=== PATIENT | female | born 1945 | race African-American/Black ===

== ENCOUNTER 2023-06-04 13:11 | Outpatient (OUT) | payer OTHER, MEDICAID, SELFPAY ==
--- NOTE | 2023-06-04 13:13 | US_ITS ---
The [address] [address] Patient Name: ANGELICA VILLEGAS MRN: [id number] date: 1945 Sex: F Assigned Patient Location: [facility] Current Patient Location: [facility] Accession/Order Number: [id number] Exam Date: 06/04/2023 13:13 Report Date: 06/04/2023 14:28 At the request of: JAIMEE DONIS Procedure: US pelvis EXAMINATION: US pelvis HISTORY: POST MENOPAUSLA BLEEDING COMPARISON: No relevant comparison available. FINDINGS: Uterus is enlarged in size lobular in contour with multiple myometrial masses. The uterus measures 8.4 x 5.2 x 6.5 cm. The 2 largest masses measure 4.9 and 4.1 cm in size. The endometrium is thickened and hyperechogenic measuring 7 mm. The ovaries are not visualized. Identified in the left pelvis is a cystic lesion measuring 6.5 x 7.8 x 8.4 cm, the origin cannot be determined this could be arising from the left kidney. No free fluid US/US pelvis IMPRESSION: Enlarged nodular uterus with multiple masses, fibroids are statistically favored Thickened endometrium measuring 7 mm, tissue sampling is recommended in light of the patient's postmenopausal bleeding 8.4 cm left pelvic cyst, the origin cannot be determined from ultrasound Electronically authenticated by: MARIYA PICKETT Date: 06/04/2023 14:28
== END 2023-06-04 13:12 | disposition home or self-care (01) ==
LOC: NOMS 13:11
PROVIDERS: Visit Provider Obstetrics & Gynecology
DX: N95.0 Postmenopausal bleeding (principal); N94.89 Other specified conditions associated with female genital organs and menstrual cycle
CPT/HCPCS: 76856

== ENCOUNTER 2023-07-02 11:05 | Outpatient (OUT) | payer MEDICARE, MEDICAID, SELFPAY ==
[2023-07-02 11:24] LABS: Estimated GFR (African America 45 (>=60); Estimated GFR (Non-African Ame 37 (>=60)
--- NOTE | 2023-07-02 13:44 | CT_ITS ---
[address] [address] Patient Name: ANGELICA VILLEGAS MRN: [id number] date: 1945 Sex: F Assigned Patient Location: LAB Current Patient Location: Accession/Order Number: [id number] Exam Date: 07/02/2023 13:12 Report Date: 07/03/2023 06:22 At the request of: JAIMEE DONIS Procedure: CT abdomen pelvis wo/w con EXAMINATION: CT abdomen pelvis wo/w con HISTORY: Post Menopausal Bleeding N95.0 COMPARISON: Ultrasound pelvis 06/04/2023, CT abdomen pelvis 11/30/2015 TECHNIQUE: Axial, Coronal, and Sagittal images were obtained without and/or with IV contrast as indicated by examination type. Dose reduction techniques were achieved by using automated exposure control and/or adjustment of mA and/or kV according to patient size and/or use of iterative reconstruction technique. FINDINGS: LUNG BASES: No visible pulmonary or pleural disease. LIVER: No enlargement, atrophy, suspicious density, or significant focal lesion. BILIARY: Cholecystectomy. PANCREAS: No lesion, fluid collection, or abnormal duct dilatation. SPLEEN: No enlargement or focal lesion. ADRENALS: No mass or enlargement. KIDNEYS: Numerous fluid density and hyperdense lesions bilaterally; largest simple cyst is on the left, 7.7 cm. No appreciable enhancing lesion. No hydronephrosis or stones. BOWEL/MESENTERY: No visible mass, obstruction, or bowel wall thickening. AORTA/VASCULAR: Marked atherosclerotic disease. No aneurysm. RETROPERITONEUM: No mass or adenopathy. LYMPH NODES: No adenopathy. URINARY BLADDER: Only partially included; no appreciable wall thickening or stones. PELVIC ORGANS: Significant vaginal prolapse with urinary bladder and adjacent fat extending well below the pubic symphysis and below level of imaging. Heterogeneous nodular uterus; likely multiple leiomyomas. Unremarkable ovaries. ABDOMINAL WALL: No mass or hernia. BONES: No bony lesion or fracture. 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 OTHER: Negative. CT/CT abdomen pelvis wo/w con IMPRESSION: 1. Heterogeneous nodular uterus likely representing leiomyomas. 2. Unremarkable ovaries. No appreciable large cysts. 3. Significant vaginal prolapse containing the urinary bladder. 4. Bilateral polycystic kidney disease. 5. Marked atherosclerotic disease of aorta. Electronically authenticated by: MARTIN HARRELL Date: 07/03/2023 06:22
== END 2023-07-02 11:06 | disposition home or self-care (01) ==
PROVIDERS: Visit Provider Obstetrics & Gynecology
DX: N95.0 Postmenopausal bleeding (principal); Q61.3 Polycystic kidney, unspecified
CPT/HCPCS: 36415; 74178; 82565; 84520; Q9967

== ENCOUNTER 2023-07-09 10:54 | Outpatient (OUT) | payer MEDICARE, MEDICAID, SELFPAY ==
--- OUTSIDE RECORDS SUMMARY | 2023-07-09 11:01 | XMS_ITS | CCD ---
Author Name Unknown Address [id number] [place] [address] Organization [facility] Care Team Providers Care Imagery Intelligence Name Role Phone DR NOEMY WSET Attending Unavailable JULIO CESAR, DR MARTIN Yanez Consulting Unavailable [facility], DR GARCIA Primary Care Unavailable BRETT, DR SALGUERO Admitting Unavailable BRETT, DR SALGUERO Consulting Unavailable Yoselin Quijano PA-C Primary Care Provider YOSELIN QUIJANO Referring Unavailable YOSELIN QUIJANO Primary Care Unavailable VINAYAK GRANT Attending Unavailable JAIMEE SHAY Attending Unavailable JAIMEE SHAY Attending Unavailable INDY ARROYO Attending Unavailable YOSELIN QUIJANO Referring Unavailable YOSELIN QUIJANO Primary Care Unavailable MAVIS KENNY Attending Unavailable YOSELIN QUIJANO Referring Unavailable YOSELIN QUIJANO Primary Care Unavailable Allergies Allergy Classification Reported Allergen(s) Allergy Type Date of Onset Reaction(s) Facility (1 source) clopidogrel Drug Allergy 01-24-2013 [facility] (1 source) liothyronine Drug Allergy 01-24-2013 [facility] (6 sources) clopidogrel; Translations: [CLOPIDOGREL] Drug Allergy 08-26-2014 [facility] (6 sources) Ticlopidine; Translations: [TICLOPIDINE] Drug Allergy 08-26-2014 [facility] Medications Current Medications Medication Drug Class(es) Dates Sig (Normalized) Sig (Original) 8 hr acetaminophen 650 mg extended release oral tablet (4 sources) take 1 tablet by mouth every eight hours as needed for pain acetaminophen (TYLENOL ARTHRITIS) 650 mg 8 hr tablet Take 1 tablet (650 mg total) by mouth every 8 (eight) hours as needed for pain. 0 Active allopurinol 100 mg oral tablet (4 sources) Xanthine Oxidase Inhibitor take 1 tablet by mouth in the morning allopurinoL (ZYLOPRIM) 100 mg tablet Take 1 tablet (100 mg total) by mouth in the morning. 0 Active apixaban 2.5 mg oral tablet (5 sources) Factor Xa Inhibitor Start: 05-23-2023 take 1 tablet by mouth in the morning, then take 1 tablet by mouth at bedtime apixaban (ELIQUIS) 2.5 mg tablet Take 1 tablet (2.5 mg total) by mouth in the morning and 1 tablet (2.5 mg total) before bedtime. 90 tablet 3 05/23/2023 Active Start: 10-12-2022 End: 05-23-2023 take 1 tablet by mouth in the morning, then take 1 tablet by mouth at bedtime apixaban (ELIQUIS) 5 mg tablet Take 1 tablet (5 mg total) by mouth in the morning and 1 tablet (5 mg total) before bedtime. 180 tablet 3 10/12/2022 05/23/2023 Discontinued (Reorder) atorvastatin 40 mg oral tablet (2 sources) HMG-CoA Reductase Inhibitor Start: 04-06-2023 take 1 tablet by mouth in the morning atorvastatin (LIPITOR) 40 mg tablet Take 1 tablet (40 mg total) by mouth in the morning. 0 04/06/2023 Active baclofen 10 mg oral tablet (4 sources) gamma-Aminobutyric Acid-ergic Agonist take 1 tablet by mouth three times daily as needed for muscle spasms baclofen (LIORESAL) 10 mg tablet Take 1 tablet (10 mg total) by mouth 3 (three) times a day as needed for muscle spasms. 0 Active bisoprolol fumarate 10 mg oral tablet (4 sources) beta-Adrenergic Liam Start: 10-13-2022 take 1 tablet by mouth in the morning bisoprolol (ZEBETA) 10 mg tablet Take 1 tablet (10 mg total) by mouth in the morning. 90 tablet 3 10/13/2022 Active docusate sodium 100 mg oral tablet (4 sources) take 1 capsule by mouth once daily docusate sodium 100 mg capsule Take 100 mg by mouth daily. 0 Active 24 hr isosorbide mononitrate 30 mg extended release oral tablet (5 sources) Nitrate Vasodilator Start: 05-23-2023 take 1 tablet by mouth once daily isosorbide mononitrate (IMDUR) 30 mg 24 hr tablet Take 1 tablet (30 mg total) by mouth daily. 90 tablet 3 05/23/2023 Active End: 05-23-2023 take 1 tablet by mouth once daily isosorbide mononitrate (IMDUR) 60 mg 24 hr tablet Take 1 tablet (60 mg total) by mouth daily. 0 05/23/2023 Discontinued (Reorder) montelukast 5 mg chewable tablet (4 sources) Leukotriene Receptor Antagonist montelukast (SINGULAIR) 5 mg chewable tablet Chew 1 tablet (5 mg total) and swallow nightly. 0 Active nitroglycerin 0.4 mg sublingual tablet (4 sources) Nitrate Vasodilator Start: 07-12-19 21 nitroglycerin (NITROSTAT) 0.4 MG SL tablet 1 under the tongue as needed for angina, may repeat q5mins for up three doses 25 tablet 6 07/11/2020 Active omeprazole 20 mg delayed release oral capsule (4 sources) Proton Pump Inhibitor take 1 capsule by mouth in the morning omeprazole (PriLOSEC) 20 mg capsule Take 1 capsule (20 mg total) by mouth in the morning. 0 Active sodium bicarbonate 325 mg oral tablet (4 sources) take 1 tablet by mouth in the morning, then take 1 tablet by mouth at bedtime sodium bicarbonate 325 mg tablet Take 1 tablet (325 mg total) by mouth in the morning and 1 tablet (325 mg total) before bedtime. 0 Active Completed/Discontinued Medications Medication Drug Class(es) Dates Sig (Normalized) Sig (Original) MULTIVIT WITH CALCIUM,IRON,MIN (WOMEN'S DAILY MULTIVITAMIN ORAL) (3 sources) End: 05-23-2023 take 1 tablet by mouth once daily MULTIVIT WITH CALCIUM,IRON,MIN (WOMEN'S DAILY MULTIVITAMIN ORAL) Take 1 tablet by mouth once daily. 0 05/23/2023 Discontinued (Therapy completed) take 1 tablet by mouth once belle y MULTIVIT WITH CALCIUM,IRON,MIN (WOMEN'S DAILY MULTIVITAMIN ORAL) Take 1 tablet by mouth once daily. 0 Active Problems Active Problems Problem Classification Problem Date Documented Da te Episodic/Chronic Cardiac dysrhythmias (10 sources) Paroxysmal atrial fibrillation; Translations: [Paroxysmal atrial fibrillation] Onset: 03-23-2016 03-28-2017 Chronic Conduction disorders (7 sources) Automatic implantable cardiac defibrillator in situ; Translations: [Presence of automatic (implantable) cardiac defibrillator] Onset: 01-02-2017 04-23-2017 Chronic Congestive heart failure; nonhypertensive (6 sources) Chronic systolic heart failure; Translations: [Chronic systolic (congestive) heart failure] Onset: 01-24-2016 03-28-2017 Chronic Coronary atherosclerosis and other heart disease (19 sources) Old myocardial infarction; Translations: [Coronary arteriosclerosis] Onset: 11-10-2005 Resolved: 05-23-2023 03-28-2017 Chronic Diabetes mellitus without complication (4 sources) Type 2 diabetes mellitus; Translations: [Type 2 diabetes mellitus without complications] Onset: 11-10-2005 03-28-2017 Chronic Disorders of lipid metabolism (7 sources) Pure hypercholesterolemia , unspecified; Translations: [Hyperlipidemia] Onset: 11-10-2005 03-28-2017 Chronic Essential hypertension (7 sources) Essential (primary) hypertension; Translations: [Benign essential hypertension] Onset: 11-10-2005 03-28-2017 Chronic Gastrointestinal hemorrhage (1 source) Rectal hemorrhage Onset: 06-25-2023 Episodic Gout and other crystal arthropathies (1 source) Gout, unspecified; Translations: [GOUT UNSPECIFIED] Onset: 03-24-2021 Chronic Hypertension with complications and secondary hypertension (4 sources) Benign hypertensive heart disease without congestive heart failure; Translations: [Hypertensive heart disease without heart failure] Onset: 09-01-2009 03-28-2017 Chronic Menopausal disorders (2 sources) Postmenopausal bleeding; Translations: [Postmenopausal bleeding] Onset: 04-23-2023 Chronic Other aftercare (1 source) terminal make up operator (current) use of aspirin; Translations: [RESIDENTIAL CURRENT USE OF ASPIRIN] Onset: 03-24-2021 Episodic Other aftercare (1 source) Other terminal make up operator (current) drug therapy; Translations: [OTH RESIDENTIAL CURRENT DRUG THERAPY] Onset: 03-24-2021 Episodic Other connective tissue disease (4 sources) Pain in left foot; Translations: [PAIN IN LEFT FOOT] Onset: 03-18-2021 Episodic Other connective tissue disease (1 source) Pain in right foot; Translations: [PAIN IN RIGHT FOOT] Onset: 03-24-2021 Episodic Other skin disorders (1 source) Localized swelling, mass and lump, lower limb, bilateral; Translations: [LOC SWELL MASS LUMP LOW LIMB ASHUTOSH] Onset: 03-24-2021 Episodic Unclassified (1 source) Device Check Onset: 05-23-2023 Unclassified (1 source) Error Onset: 06-25-2023 Past or Other Problems Problem Classification Problem Date Documented Date Episodic/Chronic Acute myocardial infarction (4 sources) Acute non-ST segment elevation myocardial infarction; Translations: [Non-ST elevation (NSTEMI) myocardial infarction] Onset: 03-28-2017 Resolved: 05-23-2023 03-28-2017 Chronic Mood disorders (4 sources) Mood disorders Onset: 05-18-2020 05-18-2020 Nonspecific chest pain (4 sources) Chest pain; Translations: [Chest pain, unspecified] Onset: 05-18-2020 05-18-2020 Episodic Other circulatory disease (4 sources) Hypotensive episode; Translations: [Hypotension, unspecified] Onset: 03-28-2017 Resolved: 05-23-2023 03-28-2017 Episodic Other nutritional; endocrine; and metabolic disorders (4 sources) Body mass index 30+ - obesity; Translations: [Obesity, unspecified] Onset: 09-24-2020 Resolved: 05-23-2023 09-24-2020 Chronic Other screening for suspected conditions (not mental disorders or infectious disease) (4 sources) Abnormal results of cardiovascular function studies; Translations: [Abnormal result of cardiovascular function study, unspecified] Onset: 01-25-2011 Resolved: 05-23-2023 03-28-2017 Episodic Results Test Name Value Interpretation Reference Range Facility CBC AUTO DIFFon 03-18-2021 BASO # 0.0 103/ul Normal 0.0-0.1 [facility] Comment on above: Performed By: #### C BC #### [facility] [address] [place] [address] Dr. Amira Witt Basophils/100 WBC (Bld) 0.7 % Normal 0.2-2.0 [facility] Comment on above: Performed By: #### C BC #### [facility] [address] [place] [address] Dr. Amira Witt EO # 0.1 103/ul Normal 0.0-0.7 [facility] Comment on above: Performed By: #### C BC #### [facility] [address] [place] [address] Dr. Amira Witt Eosinophils/100 WBC (Bld) 1.0 % Normal 0.9-7.0 [facility] Comment on above: Performed By: #### C BC #### [facility] [address] [place] [address] Dr. Amira Witt Erythrocyte distribution width (RBC) [Ratio] 14.6 % Normal 11.0-15.0 [facility] Comment on above: Performed By: #### C BC #### [facility] [address] [place] [address] Dr. Amira Witt Hematocrit (Bld) [Volume fraction] 34.9 % Critically low 36.0-48.0 [facility] Comment on above: Performed By: #### C BC #### [facility] [address] [place] [address] Dr. Amira Witt Hemoglobin (Bld) [Mass/Vol] 11.3 g/dL Critically low 12.0-16.0 [facility] Comment on above: Performed By: #### C BC #### [facility] [address] [place] [address] Dr. Amira Witt IG # 0.04 10e3/ul Critically high 0.00-0.03 [facility] Comment on above: Performed By: #### C BC #### [facility] [address] [place] [address] Dr. Amira Witt IG % 0.7 % Critically high 0.0-0.5 [facility] Comment on above: Performed By: #### C BC #### [facility] [address] [place] [address] Dr. Amira Witt LYMPH # 1.5 103/ul Normal 1.2-3.8 [facility] Comment on above: Performed By: #### C BC #### [facility] [address] [place] [address] Dr. Amira Witt Lymphocytes/100 WBC (Bld) 24.3 % Normal 20.5-60.0 [facility] Comment on above: Performed By: #### C BC #### [facility] [address] [place] [address] Dr. Amira Witt MANUAL DIFF REQ NO Normal [facility] Comment on above: Performed By: #### C BC #### [facility] [address] [place] [address] Dr. Amira Witt MCH (RBC) [Entitic mass] 31.9 pg Normal 26.7-34.0 [facility] Comment on above: Performed By: #### C BC #### [facility] [address] [place] [address] Dr. Amira Witt MCHC (RBC) [Mass/Vol] 32.4 g/dL Normal 29.9-35.2 [facility] Comment on above: Performed By: #### C BC #### [facility] [address] [place] [address] Dr. Amira Witt MCV (RBC) [Entitic vol] 98.6 fL Normal 81.0-99.0 [facility] Comment on above: Performed By: #### C BC #### [facility] [address] [place] [address] Dr. Amira Witt MONO # 0.6 103/ul Normal 0.3-0.8 [facility] Comment on above: Performed By: #### C BC #### [facility] [address] [place] [address] Dr. Amira Witt Monocytes/100 WBC (Bld) 9.6 % Normal 1.7-12.0 [facility] Comment on above: Performed By: #### C BC #### [facility] [address] [place] [address] Dr. Amira Witt NEUT # 3.9 103/ul Normal 1.4-6.5 [facility] Comment on above: Performed By: #### C BC #### [facility] [address] [place] [address] Dr. Amira Witt Neutrophils/100 WBC (Bld) 63.7 % Normal 43.0-75.0 [facility] Comment on above: Performed By: #### C BC #### [facility] [address] [place] [address] Dr. Amira Witt Platelet mean volume (Bld) [Entitic vol] 9.6 fL Normal 9.5-13.5 [facility] Comment on above: Performed By: #### C BC #### [facility] [address] [place] [address] Dr. Amira Witt PLT 299 103/ul Normal 150-450 [facility] Comment on above: Performed By: #### C BC #### [facility] [address] [address] [address] Amira Witt RBC 3.54 106/ul Critically low 4.20-5.40 [facility] Comment on above: Performed By: #### C BC #### [facility] [address] [address] [address] Amira Witt WBC 6.1 103/ul Normal 4.0-11.0 [facility] Comment on above: Performed By: #### C BC #### [facility] [address] [place] [address] Dr. Amira Witt CRPon 03-18-2021 CRP 0.5 mg/dL Normal <=1.0 [facility] Comment on above: Performed By: #### B MP, URIC, CRP #### [facility] [address] [place] [address] Dr. Amira Witt PROF CHEM 8 (BAS METB)on Anion gap [Moles/Vol] 15.1 mmol/L Normal [facility] Comment on above: Performed By: #### B MP, URIC, CRP #### [facility] [address] [place] [address] Dr. Amira Witt Calcium [Mass/Vol] 9.6 mg/dL Normal 8.4-10.2 [facility] Comment on above: Performed By: #### B MP, URIC, CRP #### [facility] [address] [place] [address] Dr. Amira Witt Chloride [Moles/Vol] 100 mmol/L Normal 98-107 [facility] Comment on above: Performed By: #### B MP, URIC, CRP #### [facility] [address] [place] [address] Dr. Amira Witt CO2 [Moles/Vol] 27.7 mmol/L Normal 22.0-30.0 [facility] Comment on above: Performed By: #### B MP, URIC, CRP #### [facility] [address] [address] [address] Amira Witt Creatinine [Mass/Vol] 1.63 mg/dL Critically high 0.52-1.04 [facility] Comment on above: Performed By: #### B MP, URIC, CRP #### [facility] [address] [place] [address] Dr. Amira Witt EGFR-AF LAO 37 mL/min/1.73m2 Critically low >=60 [facility] Comment on above: Performed By: #### B MP, URIC, CRP #### [facility] [address] [place] [address] Dr. Amira Witt EGFR-NON AF LAO 31 mL/min/1.73m2 Critically low >=60 [facility] Comment on above: Performed By: #### B MP, URIC, CRP #### [facility] [address] [address] [address] Amira Witt Glucose [Mass/Vol] 149 mg/dL Critically high 74-106 [facility] Comment on above: Performed By: #### B MP, URIC, CRP #### [facility] [address] [place] [address] Dr. Amira Witt Potassium [Moles/Vol] 2.8 mmol/L Critically low 3.4-5.0 [facility] Comment on above: Performed By: #### B MP, URIC, CRP #### [facility] [address] [address] [address] Amira Witt Sodium [Moles/Vol] 140 mmol/L Normal 137-145 [facility] Comment on above: Performed By: #### B MP, URIC, CRP #### [facility] [address] [address] [address] Amira Witt Urea nitrogen [Mass/Vol] 23.0 mg/dL Critically high 7.0-17.0 [facility] Comment on above: Performed By: #### B MP, URIC, CRP #### [facility] [address] [place], [place] [address] Dr. Amira Witt Urea nitrogen/Creatinin e [Mass ratio] 14.1 mg/mg Normal [facility] Comment on above: Performed By: #### B MP, URIC, CRP #### [facility] [address] [address] [address] Amira Witt SED RATE WESTERGRENon 2020 SED RATE 72 mm/hr Critically high <=30 [facility] Comment on above: Performed By: #### S EDR #### [facility] [address] [address] [address] Amira Witt URIC ACID SERUMon 03-18-2021 Urate [Mass/Vol] mg/dL Critically high 2.5-6.2 [facility] Comment on above: Performed By: #### B MP, URIC, CRP #### [facility] [address] [address] [address] Amira Witt XR FOOT ASHUTOSH MIN 3 VIEWSon XR FOOT ASHUTOSH MIN 3 VIEWS EXAMINATION: XR FOOT ASHUTOSH MIN 3 VIEWS HISTORY: Pain in right foot ; bilateral foot pain for 7 months; unable to walk for one week COMPARISON: No relevant comparison available. FINDINGS: RIGHT FINDINGS: BONES: No significant arthropathy or acute abnormality. Tiny calcaneal plantar spur. SOFT TISSUES: No visible soft tissue swelling. OTHER: Negative. LEFT FINDINGS: BONES: Mild degenerative changes of the first metatarsophalangeal joint. Small calcaneal plantar spur. SOFT TISSUES: No visible soft tissue swelling. OTHER: Negative. IMPRESSION: RIGHT CONCLUSION: 1. No acute or suspicious findings to account for patient's symptoms. Very minimal degenerative changes. LEFT CONCLUSION: 1. No acute or suspicious findings to account for patient's symptoms. Mild degenerative changes. Electronically authenticated by: MARTIN HARRELL Date: 2021-03-18 15:17 Normal [facility] Vital Signs Date Time Vital Sign Value Performing Clinician Rahel whiting 05-23-2023 14:26-0500 Body height 170.2 cm Vinayak Grant MD Work Phone: [employer] 05-23-2023 14:26-0500 Body mass index (BMI) [Ratio] 28.51 kg/m2 Vinayak Grant MD Work Phone: [employer] 05-23-2023 14:26-0500 Body weight 82.56 kg Vinayak Grnat MD Work Phone: [employer] 05-23-2023 14:26-0500 Diastolic blood pressure 60 mm[Hg] Vinayak Grant MD Work Phone: [employer] 05-23-2023 14:26-0500 Heart rate 66 /min Vinayak Grant MD Work Phone: [employer] 05-23-2023 14:26-0500 SaO2% (BldA) [Mass fraction] 99 % Vinayak Grant MD Work Phone: [employer] 05-23-2023 14:26-0500 Systolic blood pressure 90 mm[Hg] Vinayak Grant [facility] Encounters Encounter Date Encounter Type Care Provider Facility Start: 06-25-2023 ambulatory [facility] Rex KENNY [facility] Start: 06-18-2023 End: 06-18-2023 ambulatory JAIMEE GAGANDEEP Not Available Start: 05-30-2023 Telephone encounter Mavis Kenny [employer] Work Phone: [facility] Start: 05-28-2023 End: 05-28-2023 ambulatory JAIMEE GAGANDEEP Not Available Start: 05-23-2023 End: 05-23-2023 ambulatory YOSELIN Goodman [facility] Start: 05-23-2023 End: 05-23-2023 Office outpatient visit 15 minutes Ben Zarate [employer] Work Phone: [facility] Comment on above: Presence of automati c implantable cardioverter-defibrillator (Primary Dx); Benign essential hypertension; Chronic coronary artery disease; Chronic systolic congestive heart failure (CMS-HCC); Paroxysmal atrial fibrillation (CMS-HCC); Mixed hyperlipidemia Start: 05-23-2023 End: 05-23-2023 Clinical Support [facility] Comment on above: Presence of automati c implantable cardioverter-defibrillator [employer] (Primary Dx) Start: 05-22-2023 Telephone encounter Celestina Steven [facility] Start: 04-23-2023 ambulatory INDY ARROYO [facility] Start: 03-18-2021 End: 03-18-[address] NOEMY WEST Facility: Start: 03-28-2017 Patient encounter status Celestina Mary Jo farris [facility] Start: 09-01-2016 End: 05-23-2023 Patient encounter status Vinayak Grant MD Work Phone: [facility] Procedures Date Procedure Procedure Detail Performing Clinician Start: 05-23-2023 Follow-up visit Follow-up VINAYAK GRANT Start: 05-23-2023 DEVICE INTERROGATION Vinayak Grant MD Work Phone: Start: 06-28-2020 History of placement of stent for coronary artery disease Status post primary angioplasty with coronary stent Celestina Steven [facility] Plan of Treatment Date Care Activity Detail Author Start: 05-23-2024 Adult BMI Screening Adult BMI Screen ing [facility] Start: 05-23-2024 Tobacco Screening Tobacco Screening [facility] Start: 04-23-2024 Adult BMI Screening Adult BMI Screen [facility] Start: 04-23-2024 Tobacco Screening Tobacco Screening [facility] Start: 06-25-2023 End: 06-25-2023 Patient encounter procedure 06/25/2023 2:30 PM EST Office Visit [facility] General [facility] [address] [place] [id number] Mavis Kenny, [employer] [address] [place] [address] [facility] General [facility] Start: 05-28-2023 End: 05-28-2023 Patient encounter procedure 05/28/2023 3:00 PM EST Office Visit [facility] Obstetrics/Gynecology [address] [place] [id number] Indy Arroyo MD [address] [place] [address] [facility] Obstetrics/Gynecolog y Start: 05-23-2023 End: 05-23-2023 Clinical Support [facility] Start: 01-05-2023 COVID-19 Vaccine ( season) COVID-19 Vaccine ( season) [facility] Start: 2008 Fall Risk Screening Fall Risk Screen ing [facility] Start: 1962 DTaP,Tdap and Td Vaccines (1 - Tdap) DTaP,Tdap and Td Vaccines ( - Tdap) [facility] Start: 1961 Adult BMI Follow Up Plan Adult BMI Follow Up Plan [facility] Start: 1955 Depression Screening Depression Scre ening [facility] Start: 1943 Medicare Annual Wellness Visit Medicare Annual Wellness Visit [facility] End: 05-23-2024 CBC panel - Blood by Automated count CBC Lab Routine Paroxysmal atrial fibrillation ([facility]) 1 Occurrences starting 05/23/2023 until 05/23/2024 [facility] Comment on above: 1 Occurrences starti ng 05/23/2023 until 05/23/2024 End: 05-23-2024 Comprehensive metabolic 2000 panel - Serum or Plasma CMP Lab Routine Paroxysmal atrial fibrillation ([facility]-HCC) 1 Occurrences starting 05/23/2023 until 05/23/2024 [facility] Comment on above: 1 Occurrences starti ng 05/23/2023 until 05/23/2024 Device Interrogation Device Inte rrogation Cardiac Services Routine Presence of automatic implantable cardioverter-defibrillat or 05/23/2023 [facility] sfilatino [facility] End: 05-23-2024 Lipid panel Lipid panel Lab Routine Mixed hyperlipidemia 1 Occurrences starting 05/23/2023 until 05/23/2024 [facility] Work Phone: Comment on above: 1 Occurrences starti ng 05/23/2023 until 05/23/2024 Immunizations Immunization Date Immunization Notes Care Provider Fa cility 08-06-2020 COVID-19, mRNA, LNP- S, PF, 100mcg/0.5mL Dose Celestina Steven [facility] 07-09-2020 COVID-19, mRNA, LNP- S, PF, 100mcg/0.5mL Dose Celestina Steven [facility] 01-14-2020 Influenza, High-dose , Quadrivalent Celestina Tenisha [facility] 01-11-2019 influenza, high dose seasonal, preservative-free Celestina Marilinjesus manuelera [facility] 01-11-2019 pneumococcal polysaccharide vaccine, 23 valent Celestina Marilinquintin [facility] 02-05-2018 influenza, injectabl e, quadrivalent, preservative free Celestina Steven [facility] 01-04-2018 influenza, high dose seasonal, preservative-free Celestina Tenisha [facility] 01-04-2018 zoster vaccine recombinant Celestinakristen Steven [facility] 10-29-2017 zoster vaccine recombinant Celestinakristen Steven [facility] 02-05-2017 pneumococcal conjuga te vaccine, 13 valent Celestina Marilinquintin [facility] 01-24-2017 influenza, injectabl e, quadrivalent, preservative free Celestina Steven [facility] 01-15-2017 influenza, high dose seasonal, preservative-free Celestina Tenisha [facility] 12-29-2014 influenza, high dose seasonal, preservative-free Celestina Marilinjesus manuelera [facility] 02-08-2010 influenza, seasonal, injectable Celestina Tamiera [facility] Payers Date Payer Category Payer Medicare AETNA MEDICARE A ETNA MEDICARE PLAN (HMO) [id number] 2022-Present [phone] [address] [place] [address] [id number] 2022 Medicare [id number] 2015 Medicaid [place]ICA[place] SIM[place] M EDICAID [id number] 2015-Present [phone] [address] [place] [address] [id number] 1959 Medicaid [id number] 1959 Medicare [id number] 1945 Unknown [id number] 1945 Unknown [id number] 1943 Unknown [id number] 1943 Unknown [id number] 1943 Unknown [id number] 1943 Unknown [id number] 1945 Unknown [id number] Social History Date Type Detail Facility Start: 10-12-2022 Tobacco smoking stat [facility] Never smoked tobacco [facility] Start: 10-12-2022 Tobacco use and exposure Smoke less tobacco non-user [facility] Start: 04-23-2023 End: 05-23-2023 Alcohol intake Current non-drinker of alcohol (finding) [facility] Start: 05-18-2020 End: 05-23-2023 History of Social function [facility] Start: 05-18-2020 End: 05-23-2023 Social connection and isolation panel [facility] Do you belong to any clubs or organizations such as mormon groups, unions, fraternal or athletic groups, or school groups? No [facility] Are you now , , , , never or living with a partner? [facility] Adolescent depressio n screening assessment [facility] Do you feel stress - tense, restless, nervous, or anxious, or unable to sleep at night because your mind is troubled all the time - these days [OSQ] Not at all [facility] Start: 1945 Sex Assigned At Not on file P [employer] Medical Equipment Procedure Code Equipment Code Equipment Original Text Equipment Identifier Dates Medtronic Icd [id number] Start: 01-14-2016 Comment on above: Description: Medtron ic dual chamber PM/Defibrillator. Call [phone] if assistance needed. [facility] office reports that patient is not pacemaker dependent, so a magnet can be used to suspend detection and setting will resume when removed. If pacemaker dependent then it will not pace with use of a magnet and cautery as it will detect the activity from cautery as cardiac function, so intermittent cautery is recommended. Cristobal Lopes a 3.25x18 Rx - [id number] Start: 05-19-2020 Goals Date Patient Goal Desired Activity /State Personal health goal Comment on above: Formatting of this n ote might be different from the original. Evaluation of progress towards goal: Patient plans to DC home with self care. Clinical Notes 05-22-2023 to 05-30-2023 Telephone Encounter - Darlyn Hughes - 05/30/2023 11:07 AM ESTTelephone Encounter - Darlyn Hughes - 05/30/2023 11:07 AM ESTTelephone Encounter - Darlyn Hughes - 05/30/2023 11:07 AM EST Note Date & Type Note Facility 05-30-2023 Miscellaneous Notes Formattin g of this note might be different from the original. Called Bettye regarding the possible rectal bleeding referral that our office received from Dr. Shay, she needs to check with her son as he is her ride, and will call us back later to schedule an appointment. Bettye and her grandson Kishan came into the office and we scheduled her an appointment on 06/25/2023. documented in this encounter [facility] sfilatino [facility] 05-30-2023 Telephone encount er Note Called Bettye regarding the possible rectal bleeding referral that our office received from Dr. Shay, she needs to check with her son as he is her ride, and will call us back later to schedule an appointment. [facility]-30[facility]2023 Telephone encount er Note Bettye and her grandson Kishan came into the office and we scheduled her an appointment on 06/25/2023. [facility] 05-23-2023 History of Presen t illness Narrative Bettye Wallace Date of visit: 05/23/2023 Date of : 1945 Age: 78 y.o. Patient Active Problem List Diagnosis Presence of automatic implantable cardioverter-defibrillator Medtronic Benign essential hypertension Benign hypertensive heart disease without congestive heart failure Chronic systolic congestive heart failure ([facility]) Chronic coronary artery disease Type 2 diabetes mellitus ([facility]) Hyperlipidemia Old myocardial infarction Paroxysmal atrial fibrillation ([facility]) Supraventricular tachycardia Chest pain Status post primary angioplasty with coronary stent Allergies Allergen Reactions Clopidogrel Rash Ticlopidine Rash Other reaction(s): Intolerance-unknown Current Outpatient Medications Medication Sig Dispense Refill acetaminophen (TYLENOL ARTHRITIS) 650 mg 8 hr tablet Take 1 tablet (650 mg total) by mouth every 8 (eight) hours as needed for pain. allopurinoL (ZYLOPRIM) 100 mg tablet Take 1 tablet (100 mg total) by mouth in the morning. atorvastatin (LIPITOR) 40 mg tablet Take 1 tablet (40 mg total) by mouth in the morning. baclofen (LIORESAL) 10 mg tablet Take 1 tablet (10 mg total) by mouth 3 (three) times a day as needed for muscle spasms. bisoprolol (ZEBETA) 10 mg tablet Take 1 tablet (10 mg total) by mouth in the morning. 90 tablet 3 docusate sodium 100 mg capsule Take 100 mg by mouth daily. montelukast (SINGULAIR) 5 mg chewable tablet Chew 1 tablet (5 mg total) and swallow nightly. nitroglycerin (NITROSTAT) 0.4 MG SL tablet 1 under the tongue as needed for angina, may repeat q5mins for up three doses 25 tablet 6 omeprazole (PriLOSEC) 20 mg capsule Take 1 capsule (20 mg total) by mouth in the morning. sodium bicarbonate 325 mg tablet Take 1 tablet (325 mg total) by mouth in the morning and 1 tablet (325 mg total) before bedtime. apixaban (ELIQUIS) 2.5 mg tablet Take 1 tablet (2.5 mg total) by mouth in the morning and 1 tablet (2.5 mg total) before bedtime. 90 tablet 3 isosorbide mononitrate (IMDUR) 30 mg 24 hr tablet Take 1 tablet (30 mg total) by mouth daily. 90 tablet 3 No current facility-administered medications for this visit. Chief Complaint Patient presents with Follow-up EST PT F/U 6 MS ICD CK ALSO SCHED W/ PT*COVID POS 03/26/2023* History of Present Illness I last saw this 78-year-old in 2008. She was last in the office 10/2022 ICD interrogated today. She denies chest pain or worsening shortness of breath In April she lost her good friend and her brother. This compounds the mourning of losing several of her children She has previously worked at a [employer] plant. She is unaccompanied today CV TESTING HISTORY: ECHO: No results found. STRESS: No results found. HOLTER: No results found. CARDIAC CATH: No results found. CAROTID: No results found. CXR: X-ray chest 1 view Result Date: 03/26/2023 Portable chest: HISTORY: Cough and syncope. Single view of the chest was obtained and compared to prior exam dated 05/25/2022. Cardiac and mediastinal contours are stable. No focal infiltrate or effusion. No pneumothorax is seen. Osseous structures appear intact. IMPRESSION: No acute findings. Finalized by Pankaj Green MD on 03/26/2023 6:06 PM Lipid Profile: Lab Results Component Value Date Cholesterol 194 05/10/2020 Cholesterol:HDL Ratio 4.5 05/10/2020 HDL Cholesterol 43 05/10/2020 Triglycerides 89 05/10/2020 LDL (calc) 133 (H) 05/10/2020 No data recorded No data recorded No data recorded Past Medical History: Diagnosis Date Abnormal result of cardiovascular function study Arthritis CHF (congestive heart failure) ([facility] Chronic kidney disease Coronary artery disease heart disease Diabetes mellitus type 2, controlled ([facility]) GERD (gastroesophageal reflux disease) Gout Hyperlipidemia Hypertension Myocardial infarction ([facility]) 01/2016 Old myocardial infarction PAF (paroxysmal atrial fibrillation) ([facility]) Presence of automatic (implantable) cardiac defibrillator SVT (supraventricular tachycardia) Visual impairment glasses Past Surgical History: Procedure Laterality Date BACK SURGERY Cardiac catheterization N/A 05/19/2020 Performed by Anup Cross MD at [facility] CARDIAC DEFIBRILLATOR PLACEMENT 01/13/2016 Medtronic CHOLECYSTECTOMY Coronary angiogram ONLY N/A 05/19/2020 Performed by Anup Cross MD at [facility] CORONARY STENT PLACEMENT x8 stents D&C FIRST TRIMESTER / TX INCOMPLETE / MISSED / SEPTIC / INDUCED GUM SURGERY INSERT / REPLACE / REMOVE PACEMAKER Percutaneous coronary intervention N/A 05/19/2020 Performed by Anup Cross MD at [facility] RELEASE TRIGGER FINGER Left 09/11/2016 Performed by Jaison Archer DO at [facility] SHOULDER ARTHROSCOPY W/ ROTATOR CUFF REPAIR Bilateral Stent drug-eluting left circumflex N/A 05/19/2020 Performed by Anup Cross MD at [facility] Stent drug-eluting ramus N/A 05/19/2020 Performed by Anup Cross MD at [facility] TUBAL LIGATION Family History Problem Relation Age of Onset Heart disease Mother 80 aneurysm Coronary artery disease Daughter Hypertension Daughter Diabetes type II Daughter Social History Socioeconomic History Marital status: Legally Spouse name: Not on file Number of children: Not on file Years of education: Not on file Highest education level: Not on file Occupational History Not on file Tobacco Use Smoking status: Never Smokeless tobacco: Never Vaping Use Vaping Use: Never used Substance and Sexual Activity Alcohol use: No Drug use: No Sexual activity: Not Currently Other Topics Concern Caffeine Use Yes Comment: diet pepsi Social History Narrative Not on file Social Determinants of Health Financial Resource Strain: Not on file Food Insecurity: No Food Insecurity (05/23/2023) Hunger Screening Food Insecurity - Worry: Never True Food Insecurity - Inability: Never True Transportation Needs: Not on file Physical Activity: Inactive (05/18/2020) Exercise Vital Sign Days of Exercise per Week: 0 days Minutes of Exercise per Session: 0 min Stress: No Stress Concern Present (05/18/2020) [place] [employer] - Occupational Stress Questionnaire Feeling of Stress : Not at all Social Connections: Socially Isolated (05/18/2020) Social Connection and Isolation Panel [NHANES] Frequency of Communication with Friends and Family: More than three times a week Frequency of Social Gatherings with Friends and Family: More than three times a week Attends Zoroastrianism Services: Never Active Member of Clubs or Organizations: No Attends Club or Organization Meetings: Never Marital Status: Interpersonal Safety: Not At Risk (05/18/2020) Humiliation, Afraid, Rape, and Kick questionnaire Fear of Current or Ex-Partner: No Emotionally Abused: No Physically Abused: No Sexually Abused: No Review of Systems Review of Systems Constitutional: Negative for chills, fever and malaise/fatigue. HENT: Positive for nosebleeds. Negative for hearing loss and hoarse voice. Eyes: Negative for blurred vision and double vision. Respiratory: Negative for cough, shortness of breath and wheezing. Skin: Negative for color change and rash. Musculoskeletal: Negative for back pain, joint swelling and muscle weakness. Gastrointestinal: Negative for change in bowel habit, constipation and diarrhea. Neurological: Positive for loss of balance. Negative for dizziness, headaches, light-headedness and numbness. Psychiatric/Behavioral: Positive for depression. The patient is nervous/anxious. Allergic/Immunologic: Negative for environmental allergies. CARDIOVASCULAR: Please review HPI. Physical Examination General appearance: Alert, oriented and cooperative. In no acute distress. Skin: Warm and dry to touch. Respiratory: Clear to auscultation bilaterally, no use of accessory muscles. Cardiovascular: RRR with normal S1 and S2 with no murmurs. Musculoskeletal: No peripheral edema. VITAL SIGNS: BP 90/60 (BP Site: Right Arm, BP Postition: Sitting) Pulse 66 Ht 170.2 cm (5' 7 ) Wt 82.6 kg (182 lb) LMP (LMP Unknown) SpO2 99% BMI 28.51 kg/m Orders Placed or Reconciled This Encounter Medications atorvastatin (LIPITOR) 40 mg tablet Sig: Take 1 tablet (40 mg total) by mouth in the morning. apixaban (ELIQUIS) 2.5 mg tablet Sig: Take 1 tablet (2.5 mg total) by mouth in the morning and 1 tablet (2.5 mg total) before bedtime. Dispense: 90 tablet Refill: 3 isosorbide mononitrate (IMDUR) 30 mg 24 hr tablet Sig: Take 1 tablet (30 mg total) by mouth daily. Dispense: 90 tablet Refill: 3 Medications Discontinued During This Encounter Medication Reason MULTIVIT WITH CALCIUM,IRON,MIN (WOMEN'S DAILY MULTIVITAMIN ORAL) Therapy completed isosorbide mononitrate (IMDUR) 60 mg 24 hr tablet Reorder apixaban (ELIQUIS) 5 mg tablet Reorder IMPRESSIONS/PLAN 1. Presence of automatic implantable cardioverter-defibrillator - Device Interrogation; Future - Device Interrogation 2. Benign essential hypertension 3. Chronic coronary artery disease 4. Chronic systolic congestive heart failure (CMS-HCC) 5. Paroxysmal atrial fibrillation (CMS-HCC) - CMP; Future - CBC; Future 6. Mixed hyperlipidemia - Lipid panel; Future 1. ASCVD --history of multiple stents, most recently to the left circumflex and ramus 05/2020 2. Ischemic cardiomyopathy --ejection fraction 45-50% on echocardiogram 05/2020 3. Status post Medtronic ICD implanted 01/2016 --longevity estimate 1.7-4 years -patient does not home monitor and needs follow-up every 6 months 4. Paroxysmal atrial fibrillation -on Eliquis, will reduced dose secondary to age and creatinine 5. Hyperlipidemia -atorvastatin 6. Chronic heart failure with reduced ejection fraction 7. Primary hypertension with relatively low blood pressure 8. Chronic kidney disease --03/2023 creatinine 1.55 9. Type 2 diabetes Instructions Reduce Eliquis to 2.5 mg twice daily Reduce Imdur to 30 mg daily Obtain labs at your convenience TODAYS ORDERS Orders Placed This Encounter Procedures Lipid panel CMP CBC Device Interrogation FOLLOW UP Return in about 6 months (around 11/21/2023). PCP: Yoselin Quijano PA-C Referring Physician: Yoselin Quijano PA-C [facility] [place] [address] documented in this encounter [employer] 05-23-2023 Instructions Vinayak Grant MD - 05/23/2023 3:15 PM EST Reduce Eliquis to 2.5 mg twice daily Reduce Imdur to 30 mg daily Obtain labs at your convenience documented in this encounter [facility] 05-23-2023 History of Presen t illness Narrative I agree with the findings in the scanned document. documented in this encounter [facility] 05-22-2023 Miscellaneous Notes Formattin g of this note might be different from the original. Called patient to remind them to bring their most current copy of their medication list with them to their appt. Patient verbalizes understanding. documented in this encounter [facility] 05-22-2023 Telephone encount er Note Called patient to remind them to bring their most current copy of their medication list with them to their appt. Patient verbalizes understanding. [facility] Evaluation note Diagnosis Presence of automatic implantable cardioverter-defibrillator- Primary Benign essential hypertension Essential hypertension, benign Chronic coronary artery disease Coronary atherosclerosis of unspecified type of vessel, [place] or graft Chronic systolic congestive heart failure (CMS-HCC) Paroxysmal atrial fibrillation (CMS-HCC) Atrial fibrillation Mixed hyperlipidemia documented in this encounter [facility]* Diagnosis Presence of automatic implantable cardioverter-defibrillator Medtronic- Primary documented in this encounter [facility] SystemInstructionsNot on filedocumented in this encounter [facility] sfil[facility] SystemInstructionsNot on filedocumented in this encounter [facility] sfil[facility]ino SystemInstructionsNot on filedocumented in this encounter [facility] Summary Purpose Family History No Family History Records FoundNo Family History Records FoundNo Family History Records FoundNo Family History Records Found Advance Directives No Advanced Directives Records FoundLatest Code Status on File Code Status Date Activated Date Inactivated Comments Full Code 05/18/2020 6:39 PM 05/20/2020 2:56 PM Latest Code Status on File Code Status Date Activated Date Inactivated Comments Full Code 05/18/2020 6:39 PM 05/20/2020 2:56 PM Reason for Referral Specialty Diagnoses / Procedures Referred By Contac t Referred To Contact Diagnoses Presence of automatic implantable cardioverter-defibrillator Procedures Device Interrogation Vinayak Grant MD [address] [place] [address] Referral ID Status Reason Start Date Expiration Date V isits Requested Visits Authorized [id number] Pending Review 05/23/2023 05/22/2024 1 1 Additional Source Comments INFORMATION SOURCE (unrecogn ized section and content) DATE CREATED AUTHOR 03/25/2021 [facility] DATE CREATED AUTHOR AUTHOR'S ORGANIZ ATION 05/26/2023 [facility] DATE CREATED AUTHOR AUTHOR'S ORGANIZ ATION 06/19/2023 [facility] EPIC DATE CREATED AUTHOR AUTHOR'S ORGANIZ ATION 07/05/2023 [facility] Care Teams (unrecognized sec tion and content) Imagery Intelligence Relationship Specialty Start Date End Date Yoselin Quijano PA-C [address] [place] [address] PCP - General Physician General Manager Farm 10/03/17 [employer]agery Intelligence Relationship Specialty Start Date End Date Yoselin Quijano PA-C [address] [place] [address] PCP - General Physician General Manager [employer] 10/03/17 Imagery Intelligence Relationship Specialty Start Date End Date Yoselin Quijano PA-C [address] [place] [address] PCP - General Physician General Manager [employer] 10/03/17 Imagery Intelligence Relationship Specialty Start Date End Date Yoselin Quijano PA-C [address] [place] [id number] PCP - General Physician General Manager [employer] 10/03/17 Reason for Visit (unrecogniz ed section and content) Reason Comments Follow-up EST PT F/U 6 MS ICD CK ALSO SCHED W/ PT*COVID POS 03/26/2023* Reason Comments Device Check FOR RECORDS PERTAINING TO PATIENTS WHO ARE OR HAVE BEEN ENROLLED IN A CHEMICAL DEPENDENCY/SUBSTANCEABUSE PROGRAM, SOME INFORMATION MAY BE OMITTED. This clinical summary was aggregated from multiple sources. Caution should be exercised in using it in the provision of clinical care. This summary normalizes information from multiple sources, and as a consequence, information in this document may materially change the coding, format and clinical context of patient data. In addition, data may be omitted in some cases. CLINICAL DECISIONS SHOULD BE BASED ON THE PRIMARY CLINICAL RECORDS. [facility] [employer] [facility]. provides no warranty or guarantee of the accuracy or completeness of information in this document.
--- NOTE | 2023-07-09 11:04 | XR_ITS ---
The [address] [address] Patient Name: ANGELICA VILLEGAS MRN: [id number] date: 1945 Sex: F Assigned Patient Location: SURGOUT Current Patient Location: [facility] Accession/Order Number: [id number] Exam Date: 07/09/2023 12:07 Report Date: 07/09/2023 13:20 At the request of: JAIMEE DONIS Procedure: XR chest 2V EXAM: XR chest 2V HISTORY: Preop exam COMPARISON: None. TECHNIQUE: PA and lateral views of the chest. FINDINGS: The cardiomediastinal silhouette is normal. Left-sided cardiac pacemaker with atrial and ventricular leads. No focal consolidation is identified. There is no pneumothorax. No pleural effusion is noted. The osseous structures are intact. XR/XR chest 2V IMPRESSION: No acute cardiopulmonary process. Electronically authenticated by: ANN OVIEDO Date: 07/09/2023 13:20
--- NOTE | 2023-07-09 11:04 | ECG_ITS ---
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
[2023-07-09 11:59] LABS: Basophils Percent Auto 0.9 % (0.2-2.0); Eosinophils Absolute Auto 0.2 10^3/uL (0.0-0.7); Eosinophils Percent Auto 3.6 % (0.9-7.0); Hematocrit 35.8 % (36.0-48.0); Hemoglobin 11.1 g/dL (12.0-16.0); Immature Granulocytes Abs Auto 0.01 10^3/uL (0.00-0.03); Immature Granulocytes Pct Auto 0.2 % (0.0-0.5); Lymphocytes Absolute Auto 1.6 10^3/uL (1.2-3.8); Mean Corpuscular Hemoglobin 31.4 pg (26.7-34.0); Mean Corpuscular Volume 101.1 fL (81.0-99.0); Mean Platelet Volume 10.3 fL (9.5-13.5); Monocytes Absolute Auto 0.4 10^3/uL (0.3-0.8); Monocytes Percent Auto 8.9 % (1.7-12.0); Neutrophils Absolute Auto 2.2 10^3/uL (1.4-6.5); Neutrophils Percent Auto 49.4 % (43.0-75.0); Platelet Count 212 10^3/uL (150-450); Red Blood Count 3.54 10^6/uL (4.20-5.40); Red Cell Distribution Width 13.8 % (11.0-15.0); White Blood Count 4.4 10^3/uL (4.0-11.0)
--- NOTE | 2023-07-09 12:00 | PM.PRESUREVA ---
History of Present Illness History of Present Illness Chief complaint: post menopausal bleeding, fibroids, pelvic mass Narrative: Patient presents for preadmission testing accompanied by her grandson. The patient states she had menstrual bleeding and was evaluated by her PCP who referred her for gynecologic care. Her ultrasound demonstrated thickened endometrium and she is now scheduled for D and C. The patient denies abdominal pain or vaginal bleeding today. Review of Systems ROS Narrative REVIEW OF SYSTEMS: Negative except as stated in HPI, ten or more systems reviewed. Constitutional: No fever , chills, weakness ENT: No sore throat or epistaxis Cardiovascular: No edema, chest pain, or palpitations; Chronic dyspnea on exertion Respiratory: No shortness of breath, cough, or wheezing Musculoskeletal: No joint pain or swelling Gastrointestinal: No abdominal pain, constipation, diarrhea, or vomiting Genitourinary: No dysuria or hematuria Neurological: No numbness, tingling, weakness, or headache Psychiatric: No mood changes [facility] History (Updated 07/09/23 @ 11:59 by Geovanna Claire NP) Uterine prolapse ?N81.4 - Uterovaginal prolapse, unspecified (ICD-10) Congestive heart failure ?I50.9 - Heart failure, unspecified (ICD-10) Bronchitis ?J40 - Bronchitis, not specified as acute or chronic (ICD-10) Chronic sinusitis ?J32.9 - Chronic sinusitis, unspecified (ICD-10) Diabetic gastropathy ?E11.69 - Type 2 diabetes mellitus with other specified complication (ICD-10) ?K31.89 - Other diseases of stomach and duodenum (ICD-10) 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 (ICD-10) Diaphoresis ?R61 - Generalized hyperhidrosis (ICD-10) Easy bruising ?R23.3 - Spontaneous ecchymoses (ICD-10) Tension headache ?G44.209 - Tension-type headache, unspecified, not intractable (ICD-10) Hyperlipidemia ?E78.5 - Hyperlipidemia, unspecified (ICD-10) Gout ?M10.9 - Gout, unspecified (ICD-10) Postural hypotension ?I95.1 - Orthostatic hypotension (ICD-10) Functional bowel disease ?K59.9 - Functional intestinal disorder, unspecified (ICD-10) Osteoarthritis ?M19.90 - Unspecified osteoarthritis, unspecified site (ICD-10) Anemia ?D64.9 - Anemia, unspecified (ICD-10) GERD (gastroesophageal reflux disease) ?K21.9 - Gastro-esophageal reflux disease without esophagitis (ICD-10) Chronic kidney disease ?N18.9 - Chronic kidney disease, unspecified (ICD-10) Dizziness ?R42 - Dizziness and giddiness (ICD-10) Insomnia ?G47.00 - Insomnia, unspecified (ICD-10) Anxiety ?F41.9 - Anxiety disorder, unspecified (ICD-10) Heartburn ?R12 - Heartburn (ICD-10) Urge incontinence ?N39.41 - Urge incontinence (ICD-10) Acute cystitis with hematuria ?N30.01 - Acute cystitis with hematuria (ICD-10) Ischemic cardiomyopathy ?I25.5 - Ischemic cardiomyopathy (ICD-10) Coronary atherosclerosis ?I25.10 - Atherosclerotic heart disease of [place] coronary artery without angina pectoris (ICD-10) Back pain ?M54.9 - Dorsalgia, unspecified (ICD-10) Angina pectoris ?I20.9 - Angina pectoris, unspecified (ICD-10) Fibroids ?D21.9 - Benign neoplasm of connective and other soft tissue, unspecified (ICD-10) Thickened endometrium ?R93.89 - Abnormal findings on diagnostic imaging of other specified body structures (ICD-10) Postmenopausal bleeding ?N95.0 - Postmenopausal bleeding (ICD-10) Constipation ?K59.00 - Constipation, unspecified (ICD-10) Myocardial infarction ?I21.9 - Acute myocardial infarction, unspecified (ICD-10) Coronary artery disease ?I25.10 - Atherosclerotic heart disease of [place] coronary artery without angina pectoris (ICD-10) Dyspnea on exertion ?R06.09 - Other forms of dyspnea (ICD-10) Diabetes ?E11.9 - Type 2 diabetes mellitus without complications (ICD-10) Pacemaker ?Z95.0 - Presence of cardiac pacemaker (ICD-10) Surgical History (Updated 07/09/23 @ 11:59 by Geovanna Claire NP) H/O tubal ligation ?Z98.51 - Tubal ligation status (ICD-10) H/O hand surgery ?Z98.890 - Other specified postprocedural states (ICD-10) H/O dilation and curettage ?Z98.890 - Other specified postprocedural states (ICD-10) History of cholecystectomy ?Z90.49 - Acquired absence of other specified parts of digestive tract (ICD-10) History of spinal surgery ?Z98.890 - Other specified postprocedural states (ICD-10) History of arthroscopy of shoulder ?Z98.890 - Other specified postprocedural states (ICD-10) History of heart artery stent ?Z95.5 - Presence of coronary angioplasty implant and graft (ICD-10) History of cardiac defibrillator placement ?Z95.810 - Presence of automatic (implantable) cardiac defibrillator (ICD-10) Family History (Updated 07/09/23 @ 11:33 by Geovanna Claire NP) Other Family history of DVT Social History (Updated 07/09/23 @ 11:27 by Geovanna Claire NP) Within the past year, how often did you have a drink containing alcohol: never Score interpretation: A score less than 3 is consistent with normal alcohol consumption. Smoking status: Never smoker Highest level of school completed/degree received: high school graduate Meds Home Medications and Allergies Home Medications Medication Instructions Recorded Confirmed Type allopurinol 300 mg tablet 300 mg PO DAILY 07/09/23 07/09/23 History atorvastatin 40 mg tablet 40 mg PO DAILY 07/09/23 07/09/23 History bisoprolol fumarate 10 mg tablet 10 mg PO DAILY 07/09/23 07/09/23 History docusate sodium 100 mg capsule 100 mg PO DAILY 07/09/23 07/09/23 History escitalopram oxalate 10 mg tablet 10 mg PO DAILY 07/09/23 07/09/23 History isosorbide mononitrate 30 mg 30 mg PO DAILY 07/09/23 07/09/23 History tablet,extended release 24 hr montelukast 10 mg tablet 10 mg PO DAILY 07/09/23 07/09/23 History omeprazole 20 mg capsule,delayed 20 mg PO DAILY 07/09/23 07/09/23 History release semaglutide 7 mg tablet (Rybelsus) 7 mg PO DAILY 07/09/23 07/09/23 History tizanidine 2 mg tablet 2 mg PO DAILY 07/09/23 07/09/23 History Allergies Allergy/AdvReac Type Severity Reaction Status Date / Time clopidogrel [From Plavix] Allergy Rash Verified 07/09/23 11:19 ticlopidine Allergy Rash Verified 07/09/23 11:19 Exam Narrative Exam Narrative: Constitutional: Awake, alert, comfortable, well-appearing, nontoxic, interactive, vital signs as charted Head: Normocephalic, atraumatic Neck: Supple, normal appearance, normal range of motion, no meningeal signs, no lymphadenopathy Respiratory: No respiratory distress, breath sounds clear Cardiovascular: Regular rate and rhythm, strong and regular heart tones Abdomen: Nontender, normal bowel sounds, soft, no CVA tenderness Musculoskeletal: Normal gait, no swelling or edema Skin: No rashes or induration, no lesions, only visible skin inspected Neuro: No neurological deficits, normal sensation Psychiatric: Oriented ?3, normal affect Assessment and Plan Assessment and Plan (1) Thickened endometrium: (2) Postmenopausal bleeding: Plan D and C, hysteroscopy, possible Myosure Scheduled with Dr. Shay 07/26/2023.
[2023-07-09 12:24] LABS: Anion Gap 12.7; BUN Creatinine Ratio 12.8; Calcium 9.4 mg/dL (8.5-10.1); Carbon Dioxide 26.3 mmol/L (21.0-32.0); Chloride 104 mmol/L (98-107); Estimated GFR (African America 50 (>=60); Estimated GFR (Non-African Ame 41 (>=60); Glucose 101 mg/dL (74-106); Sodium 139 mmol/L (136-145)
[2023-07-09 12:31] LABS: INR 1.01; Prothrombin Time 10.7 sec (9.0-11.6)
== END 2023-07-09 10:55 | disposition home or self-care (01) ==
LOC: PST 10:58
PROVIDERS: Visit Provider Obstetrics & Gynecology
DX: Z01.810 Encounter for preprocedural cardiovascular examination (principal); Z01.812 Encounter for preprocedural laboratory examination; Z01.818 Encounter for other preprocedural examination; N95.0 Postmenopausal bleeding; R93.89 Abnormal findings on diagnostic imaging of other specified body structures
CPT/HCPCS: 71046; 80048; 85025; 85610; 85730; 93005; G0463

== ENCOUNTER 2023-07-26 06:10 | Day surgery (SDC) | payer MEDICARE, MEDICAID, SELFPAY ==
[2023-07-09 11:50] VITALS: BP 136/79; PULSE 82; RESP 20; TEMP 36.3; O2SAT 97; BMI 28.4
[2023-07-26] VITALS (12 sets, daily range): BP systolic 124–156; BP diastolic 68–88; PULSE 67–91; RESP 14–30; TEMP 36.1–36.3; O2SAT 86–97; BMI 28.8
--- OUTSIDE RECORDS SUMMARY | 2023-07-26 06:13 | XMS_ITS | CCD ---
Author Organization [facility] Care Team Providers Care Personal Coach Name Role Phone DR NOEMY WEST Attending Unavailable JULIO CESAR, DR MARTIN Yanez Consulting Unavailable [facility] DR GARCIA Primary Care Unavailable BRETT, DR [...] (1 source) clopidogrel Drug Allergy 01-24-2013 [facility] (1 source) liothyronine Drug Allergy 01-24-2013 [facility] (7 sources) clopidogrel; Translations: [CLOPIDOGREL] Drug Allergy 08-26-2014 [facility] (7 sources) Ticlopidine; Translations: [TICLOPIDINE] Drug Allergy 08-26-2014 [facility] Medications Current Medications Medication Drug Class(es) Dates Sig (Normalized) Sig (Original) 8 hr acetaminophen 650 mg extended release oral tablet (5 sources) take 1 tablet by mouth every eight hours as needed for pain acetaminophen (TYLENOL ARTHRITIS) 650 mg 8 hr tablet Take 1 tablet (650 mg total) by mouth every 8 (eight) hours as needed for pain. 0 Active allopurinol 100 mg oral tablet (5 sources) Xanthine Oxidase Inhibitor take 1 tablet by mouth in the morning allopurinoL (ZYLOPRIM) 100 mg tablet Take 1 tablet (100 mg total) by mouth in the morning. 0 Active apixaban 2.5 mg oral tablet (6 sources) Factor Xa Inhibitor Start: 05-23-2023 take [...] Discontinued (Reorder) atorvastatin 40 mg oral tablet (3 sources) HMG-CoA Reductase Inhibitor Start: 04-06-2023 take 1 tablet by mouth in the morning atorvastatin (LIPITOR) 40 mg tablet Take 1 tablet (40 mg total) by mouth in the morning. 0 04/06/2023 Active baclofen 10 mg oral tablet (5 sources) gamma-Aminobutyric Acid-ergic Agonist take 1 tablet by mouth three times daily as needed for muscle spasms baclofen (LIORESAL) 10 mg tablet Take 1 tablet (10 mg total) by mouth 3 (three) times a day as needed for muscle spasms. 0 Active bisoprolol fumarate 10 mg oral tablet (5 sources) beta-Adrenergic Liam Start: 10-13-2022 take 1 tablet by mouth in the morning bisoprolol (ZEBETA) 10 mg tablet Take 1 tablet (10 mg total) by mouth in the morning. 90 tablet 3 10/13/2022 Active docusate sodium 100 mg oral tablet (5 sources) take 1 capsule by mouth once daily docusate sodium 100 mg capsule Take 100 mg by mouth daily. 0 Active 24 hr isosorbide mononitrate 30 mg extended release oral tablet (6 sources) Nitrate Vasodilator Start: 05-23-2023 take 1 [...] Discontinued (Reorder) montelukast 5 mg chewable tablet (5 sources) Leukotriene Receptor Antagonist montelukast (SINGULAIR) 5 mg chewable tablet Chew 1 tablet (5 mg total) and swallow nightly. 0 Active nitroglycerin 0.4 mg sublingual tablet (5 sources) Nitrate Vasodilator Start: 07-12-19 nitroglycerin (NITROSTAT) 0.4 MG SL tablet 1 under the tongue as needed for angina, may repeat q5mins for up three doses 25 tablet 6 07/11/2020 Active omeprazole 20 mg delayed release oral capsule (5 sources) Proton Pump Inhibitor take 1 capsule by mouth in the morning omeprazole (PriLOSEC) 20 mg capsule Take 1 capsule (20 mg total) by mouth in the morning. 0 Active sodium bicarbonate 325 mg oral tablet (5 sources) take 1 tablet by mouth in [...] Date Documented Da te Episodic/Chronic Cardiac dysrhythmias (12 sources) Paroxysmal atrial fibrillation; Translations: [Paroxysmal atrial fibrillation] Onset: 03-23-2016 03-28-2017 Chronic Conduction disorders (8 sources) Automatic implantable cardiac defibrillator in situ; Translations: [Presence of automatic (implantable) cardiac defibrillator] Onset: 01-02-2017 04-23-2017 Chronic Congestive heart failure; nonhypertensive (7 sources) Chronic systolic heart failure; Translations: [Chronic systolic (congestive) heart failure] Onset: 01-24-2016 03-28-2017 Chronic Coronary atherosclerosis and other heart disease (20 sources) Old myocardial infarction; Translations: [Coronary arteriosclerosis] Onset: 11-10-2005 Resolved: 05-23-2023 03-28-2017 Chronic Diabetes mellitus without complication (5 sources) Type 2 diabetes mellitus; Translations: [Type 2 diabetes mellitus without complications] Onset: 11-10-2005 03-28-2017 Chronic Disorders of lipid metabolism (8 sources) Pure hypercholesterolemia , unspecified; Translations: [Hyperlipidemia] Onset: 11-10-2005 03-28-2017 Chronic Essential hypertension (8 sources) Essential (primary) hypertension; Translations: [Benign essential hypertension] Onset: 11-10-2005 03-28-2017 Chronic Gastrointestinal hemorrhage (1 source) Rectal hemorrhage Onset: 06-25-2023 Episodic Gout and other crystal arthropathies (1 source) Gout, unspecified; Translations: [GOUT UNSPECIFIED] Onset: 03-24-2021 Chronic Hypertension with complications and secondary hypertension (5 sources) Benign hypertensive heart disease without congestive heart failure; Translations: [Hypertensive heart disease without heart failure] Onset: 09-01-2009 03-28-2017 Chronic Menopausal disorders (2 sources) Postmenopausal bleeding; Translations: [Postmenopausal bleeding] Onset: 04-23-2023 Chronic Other aftercare (1 source) longterm (current) use of aspirin; Translations: [CONSUMER BANKER CURRENT USE OF ASPIRIN] Onset: 03-24-2021 Episodic Other aftercare (1 source) Other snf (current) drug therapy; Translations: [OTH LONGTERM CURRENT DRUG THERAPY] Onset: 03-24-2021 Episodic Other [...] Date Documented Date Episodic/Chronic Acute myocardial infarction (5 sources) Acute non-ST segment elevation myocardial infarction; Translations: [Non-ST elevation (NSTEMI) myocardial infarction] Onset: 03-28-2017 Resolved: 05-23-2023 03-28-2017 Chronic Mood disorders (5 sources) Mood disorders Onset: 05-18-2020 05-18-2020 Nonspecific chest pain (5 sources) Chest pain; Translations: [Chest pain, unspecified] Onset: 05-18-2020 05-18-2020 Episodic Other circulatory disease (5 sources) Hypotensive episode; Translations: [Hypotension, unspecified] Onset: 03-28-2017 Resolved: 05-23-2023 03-28-2017 Episodic Other nutritional; endocrine; and metabolic disorders (5 sources) Body mass index 30+ - obesity; Translations: [Obesity, unspecified] Onset: 09-24-2020 Resolved: 05-23-2023 09-24-2020 Chronic Other screening for suspected conditions (not mental disorders or infectious disease) (5 sources) Abnormal results of cardiovascular function studies; Translations: [Abnormal result of cardiovascular function study, unspecified] Onset: 01-25-2011 Resolved: 05-23-2023 03-28-2017 Episodic Results Test Name Value Interpretation Reference Range Facility CBC AUTO DIFFon 03-18-2021 BASO # 0.0 103/ul Normal 0.0-0.1 [facility] Comment on above: Performed By: #### C BC #### [facility] [address] [place] [address] Dr. Amira Witt Basophils/100 WBC (Bld) 0.7 % Normal 0.2-2.0 [facility] Comment on above: Performed By: #### C BC #### [facility] [address] [address] [address] Amira Witt EO # 0.1 103/ul Normal 0.0-0.7 [facility] Comment on above: Performed By: #### C BC #### [facility] [address] [place] [address] Dr. Amira Witt Eosinophils/100 WBC (Bld) 1.0 % Normal 0.9-7.0 [facility] Comment on above: Performed By: #### C BC #### [facility] [address] [place] [address] Dr. Amira Witt Erythrocyte distribution width (RBC) [Ratio] 14.6 % Normal 11.0-15.0 [facility] Comment on above: Performed By: #### C BC #### [facility] [address] [place] [address] Dr. Amira Witt Hematocrit (Bld) [Volume fraction] 34.9 % Critically low 36.0-48.0 [facility] Comment on above: Performed By: #### C BC #### [facility] [address] [place] [address] Dr. Amira Witt Hemoglobin (Bld) [Mass/Vol] 11.3 g/dL Critically low 12.0-16.0 [facility] Comment on above: Performed By: #### C BC #### [facility] [address] [place] [address] Dr. Amira Witt IG # 0.04 10e3/ul Critically high 0.00-0.03 [facility] Comment on above: Performed By: #### C BC #### [facility] [address] [place] [address] Dr. Amira Witt IG % 0.7 % Critically high 0.0-0.5 [facility] Comment on above: Performed By: #### C BC #### [facility] [address] [place] [address] Dr. Amira Witt LYMPH # 1.5 103/ul Normal 1.2-3.8 [facility] Comment on above: Performed By: #### C BC #### [facility] [address] [place] [address] Dr. Amira Witt Lymphocytes/100 WBC (Bld) 24.3 % Normal 20.5-60.0 [facility] Comment on above: Performed By: #### C BC #### [facility] [address] [place] [address] Dr. Amira Witt MANUAL DIFF REQ NO Normal [facility] Comment on above: Performed By: #### C BC #### [facility] [address] [place] [address] Dr. Amira Witt MCH (RBC) [Entitic mass] 31.9 pg Normal 26.7-34.0 [facility] Comment on above: Performed By: #### C BC #### [facility] [address] [place] [address] Dr. Amira Witt MCHC (RBC) [Mass/Vol] 32.4 g/dL Normal 29.9-35.2 [facility] Comment on above: Performed By: #### C BC #### [facility] [address] [place] [address] Dr. Amira Witt MCV (RBC) [Entitic vol] 98.6 fL Normal 81.0-99.0 [facility] Comment on above: Performed By: #### C BC #### [facility] [address] [place] [address] Dr. Amira Witt MONO # 0.6 103/ul Normal 0.3-0.8 [facility] Comment on above: Performed By: #### C BC #### [facility] [address] [place] [address] Dr. Amira Witt Monocytes/100 WBC (Bld) 9.6 % Normal 1.7-12.0 [facility] Comment on above: Performed By: #### C BC #### [facility] [address] [place] [address] Dr. Amira Witt NEUT # 3.9 103/ul Normal 1.4-6.5 [facility] Comment on above: Performed By: #### C BC #### [facility] [address] [place] [address] Dr. Amira Witt Neutrophils/100 WBC (Bld) 63.7 % Normal 43.0-75.0 [facility] Comment on above: Performed By: #### C BC #### [facility] [address] [place] [address] Dr. Amira Witt Platelet mean volume (Bld) [Entitic vol] 9.6 fL Normal 9.5-13.5 [facility] Comment on above: Performed By: #### C BC #### [facility] [address] [address] [address] Amira Witt PLT 299 103/ul Normal 150-450 [facility] Comment on above: Performed By: #### C BC #### [facility] [address] [address] [address] Amira Witt RBC 3.54 106/ul Critically low 4.20-5.40 [facility] Comment on above: Performed By: #### C BC #### [facility] [address] [address] [address] Amira Witt WBC 6.1 103/ul Normal 4.0-11.0 [facility] Comment on above: Performed By: #### C BC #### [facility] [address] [place] [address] Dr. Amira Witt CRPon 03-18-2021 CRP 0.5 mg/dL Normal <=1.0 [facility] Comment on above: Performed By: #### B MP, URIC, CRP #### [facility] [address] [place] [address] Dr. Amira Witt PROF CHEM 8 (BAS METB)on Anion gap [Moles/Vol] 15.1 mmol/L Normal [facility] Comment on above: Performed By: #### B MP, URIC, CRP #### [facility] [address] [address] [address] Amira Witt Calcium [Mass/Vol] 9.6 mg/dL Normal 8.4-10.[address] [facility] Comment on above: Performed By: #### B MP, URIC, CRP #### [facility] [address] [address] [address] Amira Witt Chloride [Moles/Vol] 100 mmol/L Normal 98-107 [facility] Comment on above: Performed By: #### B MP, URIC, CRP #### [facility] [address] [place] [address] Dr. Amira Witt CO2 [Moles/Vol] 27.7 mmol/L Normal 22.0-30.0 [facility] Comment on above: Performed By: #### B MP, URIC, CRP #### [facility] [address] [address] [address] Amira Witt Creatinine [Mass/Vol] 1.63 mg/dL Critically high 0.52-1.04 [facility] Comment on above: Performed By: #### B MP, URIC, CRP #### [facility] [address] [address] [address] Amria Witt EGFR-AF NORWEGIAN 37 mL/min/1.73m2 Critically low >=60 [facility] Comment on above: Performed By: #### B MP, URIC, CRP #### [facility] [address] [place] [address] Dr. Amira Witt EGFR-NON AF NORWEGIAN 31 mL/min/1.73m2 Critically low >=60 [facility] Comment on above: Performed By: #### B MP, URIC, CRP #### [facility] [address] [address] [address] Amira Witt Glucose [Mass/Vol] 149 mg/dL Critically high 74-106 [facility] Comment on above: Performed By: #### B MP, URIC, CRP #### [facility] [address] [place] [address] Dr. Amira Witt Potassium [Moles/Vol] 2.8 mmol/L Critically low 3.4-5.0 [facility] Comment on above: Performed By: #### B MP, URIC, CRP #### [facility] [address] [address] [address] Amira Witt Sodium [Moles/Vol] 140 mmol/L Normal 137-145 [facility] Comment on above: Performed By: #### B MP, URIC, CRP #### [facility] [address] [place] [address] Dr. Amira Witt Urea nitrogen [Mass/Vol] 23.0 mg/dL Critically high 7.0-17.0 [facility] Comment on above: Performed By: #### B MP, URIC, CRP #### [facility] [address] [place] [address] Dr. Amira Witt Urea nitrogen/Creatinin e [Mass ratio] 14.1 mg/mg Normal [facility] Comment on above: Performed By: #### B MP, URIC, CRP #### [facility] [address] [address] [address] Amira Witt SED RATE WESTERGRENon 2020 SED RATE 72 mm/hr Critically high <=30 [facility] Comment on above: Performed By: #### S EDR #### [facility] [address] [address] [address] Amira Witt URIC ACID SERUMon 03-18-2021 Urate [Mass/Vol] mg/dL Critically high 2.5-6.2 [facility] Comment on above: Performed By: #### B MP, URIC, CRP #### [facility] [address] [place] [address] Dr. Amira Witt XR FOOT ASHUTOSH MIN [...] by: MARTIN HARRELL Date: 2021-03-18 15:17 Normal [facility] Vital Signs Date Time Vital Sign Value Performing Clinician Rahel whiting 05-23-2023 14:26-0500 Body height 170.2 cm Vinayak Grant MD Work Phone: [facility] 05-23-2023 14:26-0500 Body mass index (BMI) [Ratio] 28.51 kg/m2 Vinayak Grant MD Work Phone: [facility] 05-23-2023 14:26-0500 Body weight 82.56 kg Vinayak Grant MD Work Phone: [facility] 05-23-2023 14:26-0500 Diastolic blood pressure 60 mm[Hg] Vinayak Grant MD Work Phone: [facility] 05-23-2023 14:26-0500 Heart rate 66 /min Vinayak Grant MD Work Phone: [facility] 05-23-2023 14:26-0500 SaO2% (BldA) [Mass fraction] 99 % Vinayak Grant MD Work Phone: [facility] 05-23-2023 14:26-0500 Systolic blood pressure 90 mm[Hg] [facility] Encounter Date Encounter Type Care Provider Facility Start: 07-05-2023 Telephone encounter Lora graf RN [facility] Comment on above: Cardiac Clearance Start: 06-25-2023 ambulatory [facility] Start: 06-18-2023 End: 06-18-2023 ambulatory JAIMEE GAGANDEEP Not Available Start: 05-30-2023 Telephone encounter Mavis Kenny SUBSTATION MAINTENANCE TECHNICIAN-5TH GRADE TEACHER Work Phone: [facility] General Surgery Start: 05-28-2023 End: 05-28-2023 ambulatory JAIMEE GAGANDEEP Not Available Start: 05-23-2023 End: 05-23-2023 ambulatory YOSELIN Goodman [facility] Start: 05-23-2023 End: 05-23-2023 Office outpatient visit 15 minutes Ben Zarate SUBSTATION MAINTENANCE TECHNICIAN-5TH GRADE TEACHER Work Phone: [facility] Comment on above: Presence of automati c implantable cardioverter-defibrillator (Primary Dx); Benign essential hypertension; Chronic coronary artery disease; Chronic systolic congestive heart failure (CMS-HCC); Paroxysmal atrial fibrillation (CMS-HCC); Mixed hyperlipidemia Start: 05-23-2023 End: 05-23-2023 Clinical Support [facility] Comment on above: Presence of automati c implantable cardioverter-defibrillator [employer] (Primary Dx) Start: 05-22-2023 Telephone encounter Celestina Steven [facility] Start: [facility]-23-[facility] Start: 03-18-2021 End: 03-18-[address] NOEMY WEST Facility: Start: 03-28-2017 Patient encounter status Celestina De Dios [facility] Start: 09-01-2016 End: 05-23-2023 Patient encounter status Vinayak Grant MD Work Phone: [facility] Procedures Date Procedure Procedure Detail Performing Clinician Start: 05-23-2023 Follow-up visit Follow-up VINAYAK GRANT Start: 05-23-2023 DEVICE INTERROGATION Vinayak Grant MD Work Phone: Start: 06-28-2020 History of placement of stent for coronary artery disease Status post primary angioplasty with coronary stent Celestina Steven [facility] Plan of Treatment Date Care Activity Detail Author Start: 06-25-2024 Adult BMI Screening Adult BMI Screen ing [facility] Start: 05-23-2024 Adult BMI Screening Adult BMI Screen ing [facility] Start: 05-23-2024 Tobacco Screening Tobacco Screening [facility] Start: 04-23-2024 Adult BMI Screening Adult BMI Screen ing [facility] Start: 04-23-2024 Tobacco Screening Tobacco Screening [facility] Start: 06-25-2023 End: 06-25-2023 Patient encounter procedure 06/25/2023 2:30 PM EST [facility] [address] [place] [id number] Mavis Kenny, SUBSTATION MAINTENANCE TECHNICIAN-5TH GRADE TEACHER [address] [place], [place] [id number] [facility] Start: 05-28-2023 End: 05-28-2023 Patient encounter procedure 05/28/2023 3:00 PM EST Office Visit [facility] Obstetrics/Gynecology [address] [place] [address] Indy Arroyo MD [address] [place], [place] [id number] [facility] Obstetrics/Gynecolog y Start: 05-23-2023 End: 05-23-2023 [facility] Start: 01-05-2023 COVID-19 Vaccine ( season) COVID-19 Vaccine () [email or web address] Start: 2008 Fall Risk Screening Fall Risk Screen ing [email or web address] Start: 1962 DTaP,Tdap and Td Vaccines (1 - Tdap) DTaP,Tdap and Td Vaccines (1 - Tdap) [email or web address] Start: 1961 Adult BMI Follow Up Plan Adult BMI Follow Up Plan [email or web address] Start: 1955 Depression Screening Depression Scre ening [email or web address] Start: 1943 Medicare Annual Wellness Visit Medicare Annual Wellness Visit [email or web address] End: 05-23-2024 CBC panel - Blood by Automated count CBC Lab Routine Paroxysmal atrial fibrillation ([facility]) 1 Occurrences starting 05/23/2023 until 05/23/2024 [email or web address] Comment on above: 1 Occurrences starti ng 05/23/2023 until 05/23/2024 End: 05-23-2024 Comprehensive metabolic 2000 panel - Serum or Plasma CMP Lab Routine Paroxysmal atrial fibrillation ([facility]) 1 Occurrences starting 05/23/2023 until 05/23/2024 [email or web address] Comment on above: 1 Occurrences starti ng 05/23/2023 until 05/23/2024 Device Interrogation Device Inte rrogation Cardiac Services Routine Presence of automatic implantable cardioverter-defibrillat or 05/23/2023 [email or web address] End: 05-23-2024 Lipid panel Lipid panel Lab Routine Mixed hyperlipidemia 1 Occurrences starting 05/23/2023 until 05/23/2024 [facility] Work Phone: Comment on above: 1 Occurrences starti ng 05/23/2023 until 05/23/2024 Immunizations Immunization Date Immunization Notes Care Provider Saroj king 08-06-2020 COVID-19, mRNA, LNP- S, PF, 100mcg/0.5mL Dose Celestina Garrettera [facility] 07-09-2020 COVID-19, mRNA, LNP- S, PF, 100mcg/0.5mL Dose Celestina Garrettera [facility] 01-14-2020 Influenza, High-dose , Quadrivalent Celestina Tenisha [facility] 01-11-2019 influenza, high dose seasonal, preservative-free Celestina Marilinjesus manuelera [facility] 01-11-2019 pneumococcal polysaccharide vaccine, 23 valent Celestinakristen Steven [facility] 02-05-2018 influenza, injectabl e, quadrivalent, preservative free [facility] 01-04-[facility] influenza, high dose seasonal, preservative-free Celestinakristen Garrettera [facility] 01-04-2018 zoster vaccine recombinant Celestinakristen Steven [facility] 10-29-2017 zoster vaccine recombinant Celestinakristen Steven [facility] 02-05-2017 pneumococcal conjuga te vaccine, 13 valent Celestinaitalia Steven [facility] 01-24-2017 influenza, injectabl e, quadrivalent, preservative free [facility] 01-15-2017 influenza, high dose seasonal, preservative-free Celestina Tamier [facility] 12-29-2014 influenza, high dose seasonal, preservative-free Celestinakristen Garrettrea [facility] 02-08-2010 influenza, seasonal, injectable Celestina Marilinjesus manuelera [facility] Payers Date Payer Category Payer Medicare A[employer] MEDICARE A [employer]NA MEDICARE PLAN (HMO) [id number] 2022-Present [phone] [address] [place] [address] [id number] 2022 Medicare [id number] 2015 Medicaid MEDICAID [facility] EDICAID [id number] 2015-Present [phone] [address] [place] [address] [id number] 1959 Medicaid [id number] 1959 Medicare [id number] 1943 Unknown [id number] 1943 Unknown [id number] 1943 Unknown [id number] 1943 Unknown [id number] 1943 Unknown [id number] 1943 Unknown [id number] 1943 Unknown [id number] Social History Date Type Detail Facility Start: 10-12-2022 Tobacco smoking stat [facility] Never smoked tobacco [facility] Start: 10-12-2022 Tobacco use and exposure Smoke less tobacco non-user [facility] Start: 04-23-2023 End: 05-23-2023 Alcohol intake Current non-drinker of alcohol (finding) [facility] Start: 05-18-2020 End: 05-23-2023 History of Social function [facility] Start: 05-18-2020 End: 05-23-2023 Social connection and isolation panel [facility] Do you belong to any clubs or organizations such as lutheran groups, unions, fraternal or athletic groups, or school groups? No [facility] Are you now , , , , never or living with a partner? [facility] Adolescent depressio n screening assessment 0 [facility] Do you feel stress - tense, restless, nervous, or anxious, or unable to sleep at night because your mind is troubled all the time - these days [OSQ] Not at all [employer] [facility] Start: 1945 Sex Assigned At Not on file P [employer] Medical Equipment Procedure Code Equipment Code Equipment Original Text Equipment Identifier Dates Medtronic Icd [id number]_[facility] Start: 01-14-2016 Comment on above: Description: Medtron ic dual chamber PM/Defibrillator. Call [phone] if assistance needed. [facility] office reports that patient is not pacemaker dependent, so a magnet can be used to suspend detection and setting will resume when removed. If pacemaker dependent then it will not pace with use of a magnet and cautery as it will detect the activity from cautery as cardiac function, so intermittent cautery is recommended. Cristobal [employer] 3.25x18 Rx - [id number] [facility] Start: 05-19-2020 Goals Date Patient Goal Desired Activity /State Personal health goal Comment on above: Formatting of this n ote might be different from the original. Evaluation of progress towards goal: Patient plans to DC home with self care. Clinical Notes 05-22-2023 to 07-05-2023 Telephone Encounter - Lora Escalante RN - 07/05/2023 10:42 AM ESTTelephone Encounter - Vinayak Grant MD - 07/05/2023 10:42 AM Kailyn Grant MD - 05/23/2023 3:15 PM EST Note Date & Type Note Facility 07-05-2023 Miscellaneous Notes Formattin g of this note might be different from the original. Surgeon: Dr. Jaimee Shay Type of surgery: D & C Hysteroscopy Date of surgery: 07/26/23 Surgery location: [facility] Type of anesthesia: General On a blood thinner?: Eliquis 2.5 mg Indication? PAF On an antiplatelet?: Not noted Stent? YES x2 Type System Cor Stnt 15mm Xience Srr Everolimus 3.25mm When placed? 05/19/20 Date of last EK03/26/23 Last office visit date and who they saw: D 05/23/23 Their preference of how long to hold blood thinners/antiplatelet: Not noted History of CVA/TIA, DVT/PE? Not noted LLD 05/23/23 ov note: IMPRESSIONS/PLAN 1. Presence of automatic implantable cardioverter-defibrillator 2. Benign essential hypertension 3. Chronic coronary artery disease 4. Chronic systolic congestive heart failure (CMS-HCC) 5. Paroxysmal atrial fibrillation (CMS-HCC) 6. Mixed hyperlipidemia 1. ASCVD --history of multiple stents, most [...] mg daily Obtain labs at your convenience Moderate risk. May hold Eliquis for 3 days prior Preop clearance letter per LLD faxed via Donews to Dr. Shay 's office. Fax confirmed sent via Donews. documented in this encounter [facility] 07-05-2023 Telephone encount er Note Surgeon: Dr. Jaimee Shay Type of surgery: D & C Hysteroscopy Date of surgery: 07/26/23 Surgery location: [facility] Type of anesthesia: General On a blood thinner?: Eliquis 2.5 mg Indication? PAF On an antiplatelet?: Not noted Stent? YES x2 Type System Cor Stnt 15mm Xience Srr Everolimus 3.25mm When placed? 05/19/20 Date of last EK03/26/23 Last office visit date and who they saw: LLD 05/23/23 Their preference of how long to hold blood thinners/antiplatelet: Not noted History of CVA/TIA, DVT/PE? Not noted LLD 05/23/23 ov note: IMPRESSIONS/PLAN 1. Presence of automatic implantable cardioverter-defibrillator 2. Benign essential hypertension 3. Chronic coronary artery disease 4. Chronic systolic congestive heart failure (CMS-HCC) 5. Paroxysmal atrial fibrillation (CMS-HCC) 6. Mixed hyperlipidemia 1. ASCVD --history of multiple stents, most [...] mg daily Obtain labs at your convenience [facility] 07-05-2023 Telephone encount er Note Moderate risk. May hold Eliquis for 3 days prior [facility] 07-05-2023 Telephone encount er Note Preop clearance letter per LLD faxed via Donews to Dr. Shay 's office. Fax confirmed sent via Donews. [facility] 05-30-2023 Miscellaneous Notes Formattin g of this [...] appointment on 06/25/2023. documented in this encounter [facility] 05-30-2023 Telephone encount er Note Called Bettye regarding the possible rectal bleeding referral that our office received from Dr. Shay, she needs to check with her son as he is her ride, and will call us back later to schedule an appointment. [facility] 05-30-2023 Telephone encount er Note Bettye and her grandson Kishan came into the office and we scheduled her an appointment on 06/25/2023. [facility] [facility] 05-23-2023 History of Presen t illness Narrative Bettye Wallace Date of visit: 05/23/2023 Date of : 1945 Age: 78 y.o. Patient Active Problem List Diagnosis Presence of automatic implantable cardioverter-defibrillator Medtronic Benign essential hypertension Benign hypertensive heart disease without congestive heart failure Chronic systolic congestive heart failure ([facility]) Chronic coronary artery disease Type 2 diabetes mellitus ([facility]) Hyperlipidemia Old myocardial infarction Paroxysmal atrial fibrillation ([facility]) Supraventricular tachycardia Chest pain Status post primary [...] children She has previously worked at a [employer] plant. She is unaccompanied today CV TESTING [...] function study Arthritis CHF (congestive heart failure) ([facility]) Chronic kidney disease Coronary artery disease heart disease Diabetes mellitus type 2, controlled ([facility]) GERD (gastroesophageal reflux disease) Gout Hyperlipidemia Hypertension Myocardial infarction ([facility]) 01/2016 Old myocardial infarction PAF (paroxysmal atrial fibrillation) ([facility]) Presence of automatic (implantable) cardiac defibrillator SVT (supraventricular tachycardia) Visual impairment glasses Past Surgical History: Procedure Laterality Date BACK SURGERY Cardiac catheterization N/A 05/19/2020 Performed by Anup Cross MD at [facility] CARDIAC DEFIBRILLATOR PLACEMENT 01/13/2016 Medtronic CHOLECYSTECTOMY Coronary angiogram ONLY N/A 05/19/2020 Performed by Anup Cross MD at [facility] CORONARY STENT PLACEMENT x8 stents D&C FIRST TRIMESTER / TX INCOMPLETE / MISSED / SEPTIC / INDUCED GUM SURGERY INSERT / REPLACE / REMOVE PACEMAKER Percutaneous coronary intervention N/A 05/19/2020 Performed by Anup Cross MD at [facility] RELEASE TRIGGER FINGER Left 09/11/2016 Performed by Jaison Archer DO at [facility] EXPRESS SHOULDER ARTHROSCOPY W/ ROTATOR CUFF REPAIR Bilateral Stent drug-eluting left circumflex N/A 05/19/2020 Performed by Anup Cross MD at [facility] Stent drug-eluting ramus N/A 05/19/2020 Performed by Anup Cross MD at [facility] TUBAL LIGATION Family History [...] min Stress: No Stress Concern Present (05/18/2020) [place] [employer] - Occupational Stress Questionnaire Feeling of Stress : Not at all Social Connections: Socially Isolated (05/18/2020) Social Connection and Isolation Panel [NHANES] Frequency of Communication with Friends and Family: More than three times a week Frequency of Social Gatherings with Friends and Family: More than three times a week Attends Shinto Services: Never Active Member of Clubs or [...] Quijano PA-C Referring Physician: Yoselin Quijano PA-C [facility] [place] [address] documented in this encounter [facility] 05-23-2023 Instructions Vinayak Grant MD - 05/23/2023 3:15 PM EST Reduce Eliquis to 2.5 mg twice daily Reduce Imdur to 30 mg daily Obtain labs at your convenience documented in this encounter [facility] 05-23-2023 History of Presen t illness Narrative I agree with the findings in the scanned document. documented in this encounter [facility] 05-22-2023 Miscellaneous Notes Formattin g of this note might be different from the original. Called patient to remind them to bring their most current copy of their medication list with them to their appt. Patient verbalizes understanding. documented in this encounter [facility] 05-22-2023 Telephone encount er Note Called patient to remind them to bring their most current copy of their medication list with them to their appt. Patient verbalizes understanding. [facility] Diagnosis Presence of automatic implantable cardioverter-defibrillator- Primary Benign essential hypertension Essential hypertension, benign Chronic coronary artery disease Coronary atherosclerosis of unspecified type of vessel, [place] or graft Chronic systolic congestive heart failure (CMS-HCC) Paroxysmal atrial fibrillation (CMS-HCC) Atrial fibrillation Mixed hyperlipidemia documented in this encounter [facility] Diagnosis Presence of automatic implantable cardioverter-defibrillator Medtronic- Primary documented in this encounter [facility] filedocumented in this encounter [facility] on filedocumented in this encounter [facility] on filedocumented in this encounter [facility] on filedocumented in this encounter [facility] Summary Purpose Family History No Family History Records FoundNo Family History Records FoundNo Family History Records FoundNo Family History Records Found Advance Directives Latest Code Status on File Code Status [...] Interrogation Vinayak Grant MD [address] [place] [address] Referral ID Status Reason Start Date Expiration Date V isits Requested Visits Authorized [id number] Pending Review 05/23/2023 05/22/2024 1 1 Additional Source Comments INFORMATION SOURCE (unrecogn ized section and content) DATE CREATED AUTHOR 03/25/2021 [facility] DATE CREATED AUTHOR AUTHOR'S ORGANIZ ATION 05/26/2023 [facility] DATE CREATED AUTHOR AUTHOR'S ORGANIZ ATION 06/19/2023 [facility] EPIC DATE CREATED AUTHOR AUTHOR'S ORGANIZ ATION 07/05/2023 [facility] Care Teams (unrecognized sec tion and content) Personal Coach Relationship Specialty Start Date End Date Yoselin Quijano PA-C [address] [place] [id number] PCP - General Physician Axle Polisher 10/03/17 Personal Coach Relationship Specialty Start Date End Date Yoselin Quijano PA-C [address] [place] [address] PCP - General Physician Axle Polisher 10/03/17 Personal Coach Relationship Specialty Start Date End Date Yoselin Quijano PA-C [address] [place] [address] PCP - General Physician Axle Polisher 10/03/17 Personal Coach Relationship Specialty Start Date End Date Yoselin Quijano PA-C [address] [place] [address] [phone] PCP - General Physician Axle Polisher 10/03/17 Personal Coach Relationship Specialty Start Date End Date Yoselin Quijano PA-C [address] [place] [address] [phone] PCP - General Physician Axle Polisher 10/03/17 Reason for Visit (unrecogniz ed section and content) Reason Comments Follow-up EST PT F/U 6 MS ICD CK ALSO SCHED W/ PT*COVID POS 03/26/2023* Reason Comments Device Check Reason Onset Date Comments Cardiac Clearance 07/05/2023 FOR RECORDS PERTAINING TO PATIENTS WHO ARE [...] BE BASED ON THE PRIMARY CLINICAL RECORDS. [employer] provides no warranty or guarantee of the accuracy or completeness of information in this document.
[2023-07-26 06:44] LABS: Basophils Percent Auto 0.4 % (0.2-2.0); Eosinophils Absolute Auto 0.2 10^3/uL (0.0-0.7); Eosinophils Percent Auto 4.2 % (0.9-7.0); Hematocrit 35.7 % (36.0-48.0); Hemoglobin 11.3 g/dL (12.0-16.0); Immature Granulocytes Abs Auto 0.01 10^3/uL (0.00-0.03); Immature Granulocytes Pct Auto 0.2 % (0.0-0.5); Lymphocytes Absolute Auto 1.7 10^3/uL (1.2-3.8); Lymphocytes Percent Auto 38.4 % (20.5-60.0); Mean Corpuscular HGB Conc 31.7 g/dL (29.9-35.2); Mean Corpuscular Hemoglobin 32.5 pg (26.7-34.0); Mean Corpuscular Volume 102.6 fL (81.0-99.0); Mean Platelet Volume 10.1 fL (9.5-13.5); Monocytes Absolute Auto 0.4 10^3/uL (0.3-0.8); Monocytes Percent Auto 8.2 % (1.7-12.0); Neutrophils Absolute Auto 2.2 10^3/uL (1.4-6.5); Neutrophils Percent Auto 48.6 % (43.0-75.0); Platelet Count 196 10^3/uL (150-450); Red Blood Count 3.48 10^6/uL (4.20-5.40); Red Cell Distribution Width 14.3 % (11.0-15.0); White Blood Count 4.5 10^3/uL (4.0-11.0)
[2023-07-26 07:04] LABS: Glucometer 101 mg/dL (74-106)
[2023-07-26] MEDS: LACTATED RINGER'S SOLUTION 1,000 ML 50 ML IV (07:28)
--- NOTE | 2023-07-26 08:13 | P.ON_ITS ---
Brief Operative Note Date of procedure: 07/26/23 Pre-op diagnosis: PMB, UTERINE PROLAPSE Post-op diagnosis: same as pre-op Procedure: NAME OF PROCEDURE: [ D&c hysteroscopy with myosure] PROCEDURE: The patient was taken back to the Operating Room where she was prepped and draped in normal sterile fashion after being placed under general anesthesia without difficulty. She was also placed in the dorsal lithotomy position. A w eighted speculum was placed in the patient?s vagina. The anterior lip of the cervix was identified and grasped with a single tooth tenaculum. The patient?s uterus was then sounded roughly to [? 8] cm. The patient was then gently dilated using Hegar dilators. The hysteroscope was passed through the patient?s cervix into the uterus. Both ostia were identified. fluffy appearing endometrium. No gross evidence of malignancy, no gross evidence of polyps or fibroids. The myosure apparatus was placed through the scope, The myosure was engaged and endometrial curretting were removed along with endometrial polyp, The hysteroscope was then removed from the uterus. The endometrial curettings were sent out to pathology. The single tooth tenaculum was then removed from the patient's anterior lip of the cervix where excellent hemostasis was noted. All instruments were removed from the patient?s vagina. The patient tolerated the procedure well. Sponge, lap and needle counts were correct times two. The patient was taken to the Recovery Room in stable condition.Room in stable condition. Anesthesia: MAC Surgeon: Bryan Shay Estimated blood loss (mL): 5 Pathology: other (endometrial currettings) Condition: stable Disposition: PACU Urinary Catheter Management Urinary Catheter Management Urethral: Cath placed during this visit: no
== END 2023-07-26 09:45 | disposition home or self-care (01) ==
PROVIDERS: Visit Provider Obstetrics & Gynecology
PROC: (CPT 952; principal; 2023-07-26 07:30)
DX: N95.0 Postmenopausal bleeding (principal); R93.89 Abnormal findings on diagnostic imaging of other specified body structures; D64.9 Anemia, unspecified; I25.10 Atherosclerotic heart disease of native coronary artery without angina pectoris; I50.9 Heart failure, unspecified; I25.2 Old myocardial infarction; N81.4 Uterovaginal prolapse, unspecified; R19.00 Intra-abdominal and pelvic swelling, mass and lump, unspecified site; E78.5 Hyperlipidemia, unspecified; M10.9 Gout, unspecified; K21.9 Gastro-esophageal reflux disease without esophagitis; N18.9 Chronic kidney disease, unspecified; E11.22 Type 2 diabetes mellitus with diabetic chronic kidney disease; G47.00 Insomnia, unspecified; F41.9 Anxiety disorder, unspecified; N39.41 Urge incontinence; R12 Heartburn; Z98.51 Tubal ligation status; Z90.49 Acquired absence of other specified parts of digestive tract; Z95.5 Presence of coronary angioplasty implant and graft; Z95.810 Presence of automatic (implantable) cardiac defibrillator
CPT/HCPCS: 58558; 36415; 82948; 85025; 88305; 99999; J1094; J2704